=== PATIENT | male | born 1990 | race Caucasian/White ===

== ENCOUNTER 2017-09-23 11:44 | Emergency (ER) | payer OTHER ==
[2017-09-23] MEDS ORDERED: NS 0.9% 1000 ML* 1,000 ML IV ONE (12:09)
--- NOTE | 2017-09-23 12:25 | ED ---
Syncope/Near Syncope - HPI Summary HPI Summary: 27M presents with syncope today. He had his blood drawn and passed out. He had some twitching while he was out. He states has history of vasovagal with blood draws. He had the twitching with a syncopal event when was younger and had a negative seizure work up at that time. no history of seizures. no loss of bowel or bladder. he states feels completely normal now. He states he felt that he was going to pass out as he felt lightheaded and got tunnel vision. No chest pain or SOB. no abdominal pain. no melena or blood in stool. no longer lightheaded. - History Of Current Complaint Chief Complaint: EDSyncope Time Seen by Provider: 09/23/17 12:09 - Allergies/Home Medications Allergies/Adverse Reactions: Allergies Allergy/AdvReac Type Severity Reaction Status Date / Time Sulfamethoxazole Allergy Hives Verified 09/15/15 14:23 w/Trimethoprim [From Bactrim] PMH/Surg Hx/FS Hx/Imm Hx Endocrine/Hematology History: Denies: Hx Diabetes, Hx Thyroid Disease Cardiovascular History: Denies: Hx Hypertension Respiratory History: Denies: Hx Asthma, Hx Chronic Obstructive Pulmonary Disease (COPD) GI History: Denies: Hx Ulcer - Surgical History Surgery Procedure, Year, and Place: wisdom teeth Infectious Disease History: Yes Infectious Disease History: Denies: Hx Clostridium Difficile, Hx Hepatitis, Hx Human Immunodeficiency Virus (HIV), Hx of Known/Suspected MRSA, Hx Shingles, Hx Tuberculosis, Hx Known/ Suspected VRE, Hx Known/Suspected VRSA, History Other Infectious Disease, Traveled Outside the [place] in Last 30 Days - Family History Known Family History: Negative: Seizure Disorder - Social History Alcohol Use: Daily Alcohol Amount: about 2 drinks/daily Substance Use Type: Reports: Marijuana Substance Use Comment - Amount & Last Used: not today Smoking Status (MU): Never Smoked Tobacco Review of Systems Negative: Fever Negative: Chest Pain Negative: Shortness Of Breath Positive: Syncope All Other Systems Reviewed And Are Negative: Yes Physical Exam Triage Information Reviewed: Yes Vital Signs On Initial Exam: Initial Vitals Temp Pulse Resp BP Pulse Ox 97.5 F 65 16 124/81 100 09/23/17 11:48 09/23/17 11:48 09/23/17 11:48 09/23/17 11:48 09/23/17 11:48 Vital Signs Reviewed: Yes Appearance: Positive: Well-Appearing Skin: Positive: Warm, Dry Head/Face: Positive: Normal Head/Face Inspection Eyes: Positive: Normal, EOMI, SHEELA, Conjunctiva Clear ENT: Positive: Normal ENT inspection, Pharynx normal, TMs normal Respiratory/Lung Sounds: Positive: Clear to Auscultation, Breath Sounds Present Cardiovascular: Positive: Normal, RRR Neurological: Positive: Sensory/Motor Intact, Alert, Oriented to Person Place, Time, CN Intact II-III - [place] Coma Scale Coma Scale Total: 15 Diagnostics - Vital Signs Vital Signs Temp Pulse Resp BP Pulse Ox 09/23/17 12:22 97 09/23/17 12:00 56 97 09/23/17 11:53 63 98 09/23/17 11:48 97.5 F 65 16 124/81 100 - Laboratory Lab Statement: Any lab studies that have been ordered have been reviewed, and results considered in the medical decision making process. - EKG No standard instances Cardiac Rate: NL EKG Rhythm: Sinus Rhythm ST Segment: Normal EKG Interpretation: normal sinus rhythm Course/Dx Course Of Treatment: 27M presents with syncope today. He had his blood drawn and passed out. He had some twitching while he was out. He states has history of vasovagal with blood draws. He had the twitching with a syncopal event when was younger and had a negative seizure work up at that time. no history of seizures. no loss of bowel or bladder. he states feels completely normal now. He states he felt that he was going to pass out as he felt lightheaded and got tunnel vision. No chest pain or SOB. no abdominal pain. no melena or blood in stool. no longer lightheaded. normal PE. patient does not want lab work. ekg normal. likely vasovagal reaction. patient understand and agrees with plan. - Diagnoses Differential Diagnosis/HQI/PQRI: Positive: Hypoglycemia, Hypovolemia, Vasovagal Episode Provider Diagnoses: Syncope Discharge - Discharge Plan Condition: Good Disposition: HOME Patient Education Materials: Syncope (ED) Referrals: Clay Cuello MD [Primary Care Provider] - Additional Instructions: Drink plenty of fluids Eat small snacks as tolerated Follow up with primary within 5 days Return to ED if develop any new or worsening symptoms
[2017-09-23 12:36] VITALS: BP 123/75
== END 2017-09-23 12:35 | disposition home or self-care (01) ==
LOC: ED 11:44
DX: R55 Syncope and collapse (principal)
CPT/HCPCS: 93005; 99281